=== PATIENT | male | born 2000 | race Caucasian/White ===

== ENCOUNTER 2021-03-08 19:40 | Emergency (ER) | payer OTHER ==
[~2021-03-08] VITALS: Ht 167.6 cm; Wt 72.6 kg
[2021-03-08 20:03] VITALS: BP 147/79
--- NOTE | 2021-03-08 20:30 | ER.PDOC ---
General Chief Complaint: Headache Stated Complaint: POSSIBLE COVID Time seen by MD: 20:25 Source: patient Exam Limitations: no limitations History of Present Illness Initial Comments This 21-year-old male comes to the emergency department complaining of 3 days of cough productive of green sputum and fatigue with malaise. One of his coworkers has also had a cough and sore throat. Patient started having sore throat yesterday and today he lost all sense of smell and taste simultaneously. He became concerned that he might have Covid because of the loss of smell and taste but he does have a history of seasonal allergies and they have been bothering him lately as well. Patient denies any rash or any abdominal pain or diarrhea. He has not had any coronavirus immunization but has no known or confirmed coronavirus exposure. Allergies: Coded Allergies: No Known Allergies (Unverified , 03/08/21) Past Medical History Medical History: no pertinent history Surgical History: no surgical history Family History Significant Family History: no pertinent family hx Social History Smoking: non-smoker Alcohol Use: occassionally Drug Use: none Constitutional: diaphoresis, malaise Eyes: no symptoms reported Ears: denies pain, denies tinnitus Nose: congestion; denies epistaxis, denies bloody discharge; clear discharge Mouth: denies pain, denies swelling Throat: pain; denies swelling, denies neck stiffness, denies hoarse, denies muffled, denies painful swallowing Respiratory: see HPI, cough Cardiovascular: no symptoms reported Gastrointestinal: no symptoms reported Musculoskeletal: denies back pain; muscle pain Skin: no symptoms reported Neurological: denies anxiety; headache; denies numbness, denies paresthesia Hematologic/Lymphatic: denies anemia, denies easy bleeding, denies easy bruising, denies swollen glands Immunological/Allergic: no symptoms reported; denies food allergy; grass allergy, mold allergy, pollen allergy Physical Exam General Appearance: alert, no distress Head/Neck: head nml inspection, neck nml inspection, trachea midline, no lymphadenopathy Eyes: eyes nml inspection, PERRL, no nystagmus Mouth: lips, gums nml, no drooling, no thrush, membranes nml Throat: voice nml, no airway problems, pharyngeal erythema Ears/Nose: nml inspection Respiratory: no resp. distress, lungs clear CVS: reg. rate & rhythm, heart sounds nml Abdomen: non-tender, no organomegaly Extremities: non-tender, ROM nml Skin Exam: Normal Color, Warm/Dry NEURO/PSYCH: oriented X3, mood/effect nml Results/Orders Results/Orders Orders - RUI BARRETO MD Influenza A&B (03/08/21 19:52) Strep Screen (03/08/21 19:52) Covid19 Antigen Rosanne Lisa (03/08/21 19:52) Vital Signs Date Time Temp Pulse Resp B/P (MAP) Pulse Ox O2 Delivery O2 Flow Rate FiO2 03/08/21 20:03 98.5 88 16 96 03/08/21 20:03 98.5 88 16 147/79 (101) 96 Room Air 03/08/21 20:03 98.5 88 16 Laboratory Tests Test 03/08/21 19:55 Influenza Type A Antigen NEGATIVE (NEG) Influenza B Immunofluorescence NEGATIVE (NEG) SARS-CoV-2 Antigen (Rapid) NEGATIVE (NEGATIVE) Group A Streptococcus Screen NEGATIVE (NEGATIVE) Progress Progress The flu, strep screen, and Covid tests are all negative. However the history of sudden loss of smell and taste is strongly suggestive of possible Covid so I am suggesting to the patient that he isolate for 10 days with a distinct potential that this is coronavirus despite the negative test. Patient understands. He has good pulse oximetry and low risk for deterioration even if he has coronavirus with the main concern being spread of disease. Patient is disch arged in good condition. ER DEPART Departure Time of Disposition: 20:58 Disposition: 01 HOME / SELF CARE / HOMELESS Impression: Primary Impression: Acute URI Condition: Stable Referrals: PCP,UNKNOWN (PCP) PRIMARY CARE PROVIDER Duration or Time Spent with Pa: 12 minutes including counseling on being off work RUI BARRETO MD March 08, 2021 20:30
[2021-03-08 21:08] VITALS: BP 131/77
== END 2021-03-08 21:10 ==
LOC: ER 19:40
DX: J06.9 Acute upper respiratory infection, unspecified (principal); Z20.822 Contact with and (suspected) exposure to COVID-19
CPT/HCPCS: 87070; 87426; 87804; 87880; 99283